=== PATIENT | male | born 1960 | race Caucasian/White ===

== ENCOUNTER 2016-10-24 04:09 | Inpatient (IN) | payer OTHER ==
[~2016-10-24] VITALS: Ht 165.1 cm; Wt 57.1 kg
--- NOTE | ~2016-10-24 | DS ---
PATIENT'S NAME: KJ [facility]FF [facility] AGE: 56 Y [address] ROOM: [place] [address] LOCATION: GPCU ADMIT DATE: 10/24/2016 Discharge Summary DISCHARGE DATE: 10/25/2016 FAMILY PHYSICIAN: Sandro Cerda MD ATTENDING PHYSICIAN: Ava Lal PRINCIPAL DISCHARGE DIAGNOSIS: Unstable angina. SECONDARY DIAGNOSES: 1. Hypotension. 2. Bradycardia. 3. Coronary artery disease. 4. Tobacco use. 5. Hypertension. 6. Hyperlipidemia. CONSULTATIONS: Dr. Shyanne Olivares on 10/24/2016, Cardiology. PROCEDURES: 1. Cardiac catheterization with PCI to the saphenous vein graft and saphenous vein graft to the OM and diagonal. 2. Echocardiogram on 10/24/2016 showed EF estimated at 60% to 65% with normal left ventricular contractility, diastolic dysfunction grade 1. BRIEF HISTORY: Mr. Kj Jeff is a 56-year-old gentleman who had history of premature coronary artery disease, having had coronary artery bypass grafting x2 vessels in the more distant past. He presented to the emergency room with chest pain on the left side of his chest, sharp with tachypnea and shortness of breath. EKG showed T-wave inversions in lead III, and troponin was within normal limits. He was admitted and started on aspirin, statin, and Dr. Olivares came to see the patient as he was already scheduled to have cardiac cath with her. The catheterization was done and you can see her records of the cath for the procedure. The patient tolerated the procedure well, has had no complications following the procedure, and he is to be started on Brilinta and his Plavix is stopped. The patient has been advised to stop smoking. He has had a NicoDerm patch on since yesterday and will be given a script for NicoDerm patch. INSTRUCTIONS AT DISCHARGE: Diet; [place] [employer] cardiac prudent. Activity, as tolerated and gradually increase his walking. PATIENT'S NAME: KJ JEFF [facility] AGE: 56 Y [address] ROOM: [place] [address] LOCATION: GPCU ADMIT DATE: 10/24/2016 Discharge Summary DISCHARGE DATE: 10/25/2016 FAMILY PHYSICIAN: Sandro Cerda MD ATTENDING PHYSICIAN: Ava Lal A Followup appointment with Dr. Olivares in 2 weeks with a basic metabolic panel prior to the appointment. He is to see his PCP, Dr. Sandro Cerda, within 1 week. He is to get a referral to cardiac rehab. MEDICATION AT THE TIME OF DISCHARGE: 1. Nitroglycerin 0.4 mg sublingual p.r.n. chest pain. 2. Aspirin 81 mg p.o. daily. 3. Atorvastatin 80 mg daily. 4. Pepcid 20 mg p.o. daily. 5. Lisinopril 2.5 mg p.o. daily. 6. Metoprolol 12.5 mg p.o. daily to be held for heart rate less than 60 and for systolic blood pressure less than 100. 7. NicoDerm patch 21 mg transdermal every day. He is being given a script for #6, no refills. 8. Brilinta. The patient will be given a card for this. It is 90 mg twice a day. 9. Tylenol 1 g daily as needed. CONDITION AT DISCHARGE: Good. TIME SPENT: Less than 30 minutes were spent. ALFONSO SUE MD LM/juan miguel /[id number] d: 10/26/16 0304 t: 10/28/16 1846, DISCHARGE SUMMARY
--- NOTE | ~2016-10-24 | CATH ---
Cardiac Diagnostic + PCI Report Demographics Patient Name OLMAN Saenz Gender Male Date of 1960 Age 56 year(s) Patient Number [id number] Date of Study 10/24/2016 Visit Number [id number] Room Number G6338 [place] [id number] Ht 165.1 cm Wt 57 kg Referring Zaida Jo MD Primary Physician Physician Lukasz Perry MD Performing [facility] Secondary Physician Physician Shyanne SANTOS Diagnostic [facility] Assisting Physician Physician Shyanne SANTOS Interventional [facility] Physician Vocational Coordinator Physician Shyanne SANTOS Findings and Conclusions Diagnostic Findings and Conclusion Critical salamatof TVD, FARAH to LAD is patent. RCA is [employer] in mid portion, unchanged from last cath, RCA is unrevascularized, distal vessel fills via collaterals from the left system. 2/3 grafts w/ obstructive lesions, SVG to Om with eccentric, hazy, 80% stenosis in the proximal portion and SVG to Diag with 70% stenosis in the mid portion past proximal stent, diffuse - Both these lesions are new compared with prior cath in 2015. Diagnostic Recommendations PCI of SVG to OM, and SVG to DIAG in setting of unstable angina, requiring admission to the hospital. Interventional Findings and Conclusion s/p PCI of SVG to OM and SVG to DIAG with JOSE. Interventional Recommendations Patient will be observed overnight. Hydration and followup creatinine. Patient has been instructed to not lift anything more than 5 pounds for 1 week. Aggressive risk factor management. Aggressive medical therapy for coronary artery disease. Patient was transferred to PCU in stable condition. Dual Anti-platelet therapy. Smoking Cessation teaching and counseling done . Lipid lowering medication: statin will be given. Optimization of medical therapy as an outpatient. Cardiac diet . Referral to Cardiac Rehabilitation now and at discharge . Procedure Description The patient was brought to the diagnostic cardiac catheterization-EP laboratory in the fasting, non-sedated state. Informed consent was obtained in the written and verbal form after the risks and benefits were explained. The patient had no further questions and agreed to proceed. The planned puncture-incision site(s) were shaved and prepped with ChloraPrep and draped in the usual sterile manner. Conscious sedation, supplemental oxygen, and pain control medications were delivered by a registered nurse under physician guidance. Surface ECG rhythm, blood pressure measurement, and pulse oximetry were monitored throughout the procedure. Arterial access. The access site was infiltrated with lidocaine. The vessel was entered with the Seldinger technique. A sheath was advanced into the vessel and used for catheter placement. Selective left coronary angiography. A catheter was advanced into the left coronary vessel ostium under Fluoroscopic guidance. Contrast was injected by hand. Images were obtained in multiple projections. Selective right coronary angiography. A catheter was advanced into the right coronary vessel ostium under fluoroscopic guidance. Contrast was injected by hand. Images were obtained in multiple projections. Selective FARAH graft angiography. A catheter was advanced into the left internal mammary graft ostium under fluoroscopic guidance. Contrast was injected by hand. Images were obtained in multiple projections. Selective SVG angiography. A catheter was advanced into the graft proximal anastomosis under fluoroscopic guidance. Contrast was injected by hand. Images were obtained in multiple projections. Stent Placement: A guiding catheter was used to intubate the vessel. A 0.14 wire was used to cross the lesion. A Drug Eluting Stent was placed. Post placement angiograms were performed. Arterial artery hemostasis. Hemostasis was achieved. The patient was transferred to a regular nursing floor via cart accompanied by a nurse. The patient left the laboratory in stable condition. Diagnostic Cath Status: Urgent Interventional Cath Status: Urgent Procedure Procedure Type Diagnostic procedure:Angiography:, Coronary Angios w/Grafts PCI procedure:Drug Eluting Coronary Stent:, Graft Indications: Chest pain and History of CABG. The procedure was explained in detail to the patient. Risks, complications and alternative treatments were reviewed. Written consent was obtained. Medications Reviewed with Patient prior to Procedure. Angiographic Findings Dominance: Right Cardiac Arteries and Lesion Findings LMCA: Abnormal.10% Lesion on LMCA: Distal subsection.10% stenosis . LAD: Abnormal.mid 90% Diag 50% prox Lesion on Mid LAD: Mid subsection.90% stenosis . Lesion on 1st Diag: Proximal subsection.50% stenosis . LCx: Abnormal.prox 100% Lesion on Prox CX: Proximal subsection.100% stenosis . RCA: Abnormal.Prox 90 %, mid 100 %isrThere is a previous stent on Mid RCA showing occlusion. Lesion on Prox RCA: Proximal subsection.90% stenosis . Lesion on Mid RCA: Mid subsection.100% stenosis . Ramus: Normal (0% Stenosis).small wnl Graft Lesions Lesion on Aorta Left to 1st Ob Radha: Proximal body.80% stenosis . Devices used - Runthrough NS .014 x 180. Number of passes: 1. - Promus Premier 3.0 x 16 Stent. 1 inflation(s) to a max pressure of: 14 grady. Lesion on Aorta Left to 1st Diag: Middle body. Devices used - Runthrough NS .014 x 180. Number of passes: 1. - BMW Wire .014 x 190. Number of passes: 1. - Promus Premier 2.5 x 28 Stent. 1 inflation(s) to a max pressure of: 12 grady. Lesion on Aorta Left to 1st Diag: Proximal body.40% stenosis . Lesion on Aorta Left to 1st Diag: Middle body.70% stenosis 28 mm length reduced to 0%. Pre procedure PAVEL III flow was noted. Post Procedure PAVEL III flow was present. A poor run off was present.The lesion was diagnosed as a high risk lesion.Culprit lesion. Lesion on Aorta Left to 1st Ob Radha: Proximal body.80% stenosis 16 mm length reduced to 0%. Pre procedure PAVEL III flow was noted. Post Procedure PAVEL III flow was present. A poor run off was present.The lesion was diagnosed as a high risk lesion.The lesion was eccentric.Culprit lesion. Cardiac Grafts - There is a FARAH graft that originates at the FARAH and attaches to the Mid LAD. - There is a Vein graft that originates at the Aorta Left and attaches to the 1st Diag.There is a previous stent on Aorta Left to 1st Diag Middle Body. - There is a Vein graft that originates at the Aorta Left and attaches to the 1st Ob Radha.There is a previous stent on Aorta Left to 1st Ob Radha Proximal Body. Coronary Tree Procedure Data Procedure Date Date: 10/24/2016Start: 12:43 PMEnd: 01:36 PM Entry Locations - Retrograde Percutaneous access was performed through the Right Femoral artery (Primary location). A 6 Fr sheath was inserted. Hemostasis was successfully obtained using Angio-Seal STS PLUS ([facility]). Closure Comments: deployed by Dr Bauman. Procedure Medications Order and Administration + + + + + !Time !Medication !Dosage !Route ! + + + + + !10/24/2016 12:39 !Versed !1 mg !I.V. ! !PM ! ! ! ! + + + + + !10/24/2016 12:40 !Fentanyl !50 mcg !I.V. ! !PM ! ! ! ! + + + + + !10/24/2016 12:45 !Versed !1 mg !I.V. ! !PM ! ! ! ! + + + + + !10/24/2016 01:02 !Angiomax (Bivalirudin) !40 mg !I.V. bolus ! !PM !(ACC_5) ! ! ! + + + + + !10/24/2016 01:02 !Angiomax (Bivalirudin) !1.75 mg/kg/hr!I.V. bolus ! !PM !(ACC_5) ! ! ! + + + + + !10/24/2016 01:09 !Brilinta (Ticagrelor) !180 mg !P.O. ! !PM !(ACC_20) ! ! ! + + + + + Devices Used - A5 Fr. BS JL 4 Diag. Catheterwas used for:Left coronary angiography. - A5 Fr. BS JR 4 Diag. Catheterwas used for:Right coronary angiography. - A6 Fr. IM JJ Guide Catheterwas used for:SVG Intervention. - A6 Fr. IM JJ Guide Catheterwas used for:SVG Intervention. Contrast Material - Isovue [id number] ml Fluoroscopy Time: Diagnostic: 12:00 minutes. Total: 12:00 minutes. Fluoroscopy Dose: Diagnostic: 744 mGy. Total: 744 mGy. Estimated Blood Loss: [address] [facility] PCI Information PCI Indication:PCI for high risk Non-STEMI or unstable angina. Medical History Allergies - Other:(Bactrim). Risk Factors The patient risk factors include:prior PCI on 09/24/2014; prior CABG on 03/12/2008;peripheral arterial disease, treated hypercholesterolemia, treated hypertension, family history of premature CAD, last creatinine: 0.9 mg/dl, creatinine clearance: 72.13 ml/min, dyslipidemia and Current/Recent(w/in 1 year) tobacco use. Admission Data Admission Date: 10/24/2016 Admission Time: 05:38 AM Admit Source: Emergency department Insurance Payors: Private health insurance. Admission Medications + +------+------+ + + + + !Medication !Dosage!Times !Last !Last !Administered !Comments ! ! ! !Per !Delivery !Delivery ! ! ! ! ! !Day !Date !Time ! ! ! + +------+------+ + + + + !Aspirin ! ! ! ! !Yes ! ! !(any) ! ! ! ! ! ! ! + +------+------+ + + + + !Statin (any)! ! ! ! !Yes ! ! + +------+------+ + + + + !Clopidogrel ! ! ! ! !Yes ! ! + +------+------+ + + + + !JAVIER ! ! ! ! !Yes ! ! !Inhibitor ! ! ! ! ! ! ! !(any) ! ! ! ! ! ! ! + +------+------+ + + + + !Beta Claude! ! ! ! !Yes ! ! !(any) ! ! ! ! ! ! ! + +------+------+ + + + + Clinical Evaluation Leading to Procedure - The patient's CAD presentation was assessed as: Unstable angina. - The patient's anginal syndrome during the past two weeks was assessed as: Class IV according to the [place] Cardiovascular Society Classification System (CCS). Anti-anginal medications were prescribed during the past two weeks. The medication is: Beta Blockers. - The patient has been in a state of heart failure within the past two weeks. - The patient's heart failure status was assessed as NYHA Class II. Hemodynamics Condition: Rest O2 Consumption: Estimated: 177.50Heart Rate: 48 bpm Pressures (mmHg) +-----+ + !Site !Pressure ! +-----+ + !AO !108/57 (77) ! +-----+ + !AO !93/56 (72) ! +-----+ + Shunts Oxygen Values O2 Capacity 198.56 O2 Consumption 177.5 Signatures dtt: SHYANNE SABA dtd: 10/24/16 1243 Physician Self Edit
--- NOTE | ~2016-10-24 | HP ---
[facility] AGE: 56 Y [address] ROOM: [place] [address] LOCATION: GPCU ADMIT DATE: 10/24/2016 History & Physical DISCHARGE DATE: FAMILY PHYSICIAN: JENI ZAMBRANO MD ATTENDING PHYSICIAN: ASUNCION PIERCE DATE OF SERVICE: CHIEF COMPLAINT: Chest pain. HISTORY OF PRESENT ILLNESS: A 56-year-old gentleman with a past medical history of coronary artery disease with the bypass and PCS to SVG grafts to diagonal as well as OM, who presented to the emergency department this morning with the chest pain, which is located on the left side of the chest, sharp in character, and increased with breathing. No alleviating or aggravating factors. Not associated with any shortness of breath, but is associated with dizziness. It has been going on for many weeks now and have progressively gotten worse. He has a catheterization scheduled in this coming week. On further inquiry, he denied any heaviness and tightness, any shortness of breath, abdominal pain, constipation, diarrhea, burning on urination, or extremity swelling. He does have a history of left leg numbness secondary to lumbar surgery done in the past. REVIEW OF SYSTEMS: All other systems reviewed and were negative except for what is mentioned in the HPI. PAST MEDICAL HISTORY: 1. Coronary artery disease. 2. Lumbar stenosis status post surgery. MEDICATIONS: Medication being reconciled right now. FAMILY HISTORY: Significant for coronary artery disease in father. SOCIAL HISTORY: Lifelong smoker. Currently smokes 1/2 pack per day. ALLERGIES: NO KNOWN DRUG ALLERGIES. PAT[facility]'S NAME: [facility] AGE: 56 Y [address] ROOM: [address] [place] [id number] LOCATION: GPCU ADMIT DATE: 10/24/2016 History & Physical DISCHARGE DATE: FAMILY PHYSICIAN: JENI ZAMBRANO MD ATTENDING PHYSICIAN: ASUNCION PIERCE PHYSICAL EXAMINATION: VITAL SIGNS: Blood pressure 90/50, heart rate 50, saturation 95%, and respiratory rate 16. GENERAL: In no acute distress. Alert and oriented x3. HEENT: Head; atraumatic and normocephalic. Eyes; nonicteric, no pallor. Oropharynx, moist mucous membranes. CARDIOVASCULAR: S1 and S2. No murmurs, gallops, or rubs. LUNGS: Clear to auscultation bilaterally. ABDOMEN: Soft, nontender, and nondistended. Bowel sounds present. EXTREMITIES: No clubbing, cyanosis, or edema. PSYCHIATRIC: Normal affect, mood, and speech. NEUROLOGIC: Cranial nerves 2 through 12 are intact. No motor or sensory deficits. SKIN: No blemishes or dryness noted. ENDOCRINE: No thyromegaly or myxedema noted. LYMPHATICS: No lymphangiitis or lymphadenopathy noted. LABORATORY DATA: All the laboratory work done in the emergency department including CBC, BMP, and initial troponin levels were negative. EKG showed T-wave inversions in the lead III. Chest x-ray has been unremarkable. D-dimer level is pending at this point. ASSESSMENT AND PLAN: 1. Chest pain. 2. History of coronary artery disease. Plan: We are going to admit this patient. Start him on aspirin and statin. I am not going to start him on heparin drip given the very atypical nature of the chest pain. We will have Cardiology, Dr. Kimble come see this patient as he is Dr. Kimble's patient. May be expedite catheterization rather than next week. N.p.o. for now. The patient is a full code. Further recommendations will depend on his progress in the hospital. MD TIFFANI BUCKNER/juan miguel /[id number] D: [id number] T: [id number] HISTORY & PHYSICAL
--- NOTE | ~2016-10-24 | ECHO ---
Transthoracic Echocardiography Report (TTE) Demographics Patient Name MARIVEL THURMAN Date of Study 10/24/2016 Patient Number [id number] Visit Number [id number] Date of 1960 Room Number G6338 Accession Number [id number] Gender Male Age 56 year(s) Referring Zaida Jo MD Metal Numerical Tool Programmer Agnieszka Whitney [facility], Physician RVT Physician Interpreting Marshall Kimble Dry Color Tester Physician Supervising Ordering Physician Lukasz Perry MD/MLP Nurse Stress Vocational Instructor Conclusions Contractility Score Summary Normal Left Ventricular contractility was noted. Summary Normal LV/RV size and systolic function. The estimated left ventricular ejection fraction is 60-65%. Diastolic assessment reveals Grade I diastolic dysfunction. No significant valvular abnormalities. Procedure Type of Study TTE procedure:2D Echocardiogram. Procedure Date Date: 10/24/2016 Start: 07:14 AM Study Location: Inpatient Portable Technical Quality: Adequate visualization Indications:Chest pain. Appropriate Use Criteria: 9 Patient Status: Routine Rhythm: Sinus bradycardia HR: 45 bpm BP: 165/57 mmHg Allergies - Other:(Bactrim). M-Mode/2D Measurements LV Diastolic Dimension: 4.54 cm LV Systolic Dimension: 4.04 cm LV Septum Diastolic: 0.93 cm LV Septum Systolic: 4.83 cm LV PW Diastolic: 0.87 cm AO Root Dimension: 2.1 cm Cardiac Output: 3.12 l/min AV Cusp Separation: 1.5 cm RV Diastolic Dimension: 2.57 cm LA volume: 67 ml IVC Inspiration: 0.72 cm LVOT: 2.1 cm RV Base: 3.49 cm LVOT VTI: 20 cm RV Mid: 1.76 cm LV Stroke volume: 69.24 ml TAPSE: 1.91 cm TDI-S': 9.43 cm/s Doppler Measurements AV Peak Velocity: 1.17 m/s MV Peak E-Wave: 0.89 m/s AV Peak Gradient: 5.48 mmHg MV Peak A-Wave: 0.34 m/s AV Mean Gradient: 2 mmHg MV E/A Ratio: 2.66 LVOT Peak Velocity: 0.89 m/s MV P1/2t: 76 msec TR Gradient:25 mmHg PV Peak Velocity: 0.88 m/s Estimated RAP:3 mmHg PV Peak Gradient: 3.13 mmHg Estimated RVSP: 28 mmHg Estimated PASP: 28 mmHg Findings Left Ventricle The estimated left ventricular ejection fraction is 60-65%. Diastolic assessment reveals Grade I diastolic dysfunction. Right Ventricle Normal right ventricle structure and function. Left Atrium Normal left atrial size. Right Atrium Normal right atrial size. Mitral Valve Trivial mitral regurgitation by color Doppler. Aortic Valve The aortic valve is mildly sclerotic. No AI. Tricuspid Valve Mild tricuspid regurgitation by color Doppler. Pulmonic Valve Normal pulmonic valve structure and function. Pericardial Effusion No evidence of pericardial effusion. Miscellaneous Visualized portions of the aortic root and ascending aorta appear normal in size. Pleural Effusion No evidence of pleural effusion. Contractility Score LV regional wall motion:(0-Non visualized 1-Normal 2-Hypokinesis 3-Akinesis 4-Dyskinesis 5-Aneurysm) Signature dtt: DANIEL SABA dtd: 10/24/16 0714 Physician Self Edit
--- NOTE | ~2016-10-24 | ER ---
[facility] AGE: 56 Y [address] ROOM: [place] [address] LOCATION: GPCU ADMIT DATE: 10/24/2016 ER/Outpatient Report DISCHARGE DATE: FAMILY PHYSICIAN: JENI ZAMBRANO MD ATTENDING PHYSICIAN: ASUNCION PIERCE Time of Arrival: 0409 hours. Time of Evaluation: 0415 hours. CHIEF COMPLAINT: This is a 56-year-old male. He was previously healthy. He is in with complaint of left-sided chest pain. HISTORY OF PRESENT ILLNESS: The patient reports that he was awakened at about 3:00 this morning with fairly severe left-sided chest pain, took a nitroglycerin without any relief, so he presented himself here. The pain has improved while en route to the hospital. PAST MEDICAL HISTORY: Significant for well documented coronary artery disease. He has had previous bypass. REVIEW OF SYSTEMS: He has been having increased frequency of episodes of chest pain over the past month to 6 weeks. He has a stress test scheduled for later this week. Review of systems is otherwise negative. SOCIAL HISTORY: He is a 1 pack per day smoker. PHYSICAL EXAMINATION: GENERAL: An alert cooperative male, in no acute distress. VITAL SIGNS: Stable. SKIN: Warm and dry. Color was normal. HEAD, EARS, EYES, NOSE, AND THROAT: Normal. NECK: Supple. HEART: Regular rate and rhythm without murmur. LUNGS: Clear. Breath sounds were equal. CHEST: He had no chest wall tenderness. ABDOMEN: Soft and nontender. EXTREMITIES: Normal. NEUROLOGIC: Normal. LABORATORY DATA AND X-RAYS: [facility] AGE: 56 Y [address] ROOM: [place] [id number] LOCATION: GPCU ADMIT DATE: 10/24/2016 ER/Outpatient Report DISCHARGE DATE: FAMILY PHYSICIAN: JENI ZAMBRANO MD ATTENDING PHYSICIAN: ASUNCION PIERCE A EKG revealed a nonspecific intraventricular conduction delay with no acute ST or T-wave changes. CBC, comprehensive metabolic profile, and cardiac enzymes were negative. EMERGENCY DEPARTMENT COURSE: The patient's pain gradually improved while in the emergency department. ASSESSMENT: Chest pain/unstable angina. PLAN: Admit for serial enzymes. The hospitalist was called, arrived promptly, evaluated the patient, and made arrangements to admit him. MD MARTIN SUN/joannel /[id number] d: 10/25/16 0738 t: 10/27/16 0551, OUTPATIENT REPORT
[~2016-10-24 04:09] MED LIST: ASPIR 8181 MG PO; ASPIRIN EC81 MG PO; AUGMENTIN 875-1 EACH PO; BRILINTA90 MG PO; FLEXERIL10 MG PO; LIPITOR80 MG PO; NICODERM (HABIT14 MG TOP; NITROGLYCERIN0.4 MG SL; NITROSTAT0.4 MG SL; OXYCONTIN EXTEN10 MG PO; PEPCID20 MG PO; PLAVIX75 MG; PLAVIX75 MG PO; TOPROL XL25 MG PO; TYLENOL325 MG PO; ZESTRIL2.5 MG PO; ZOCOR10 M1 PO; ZOCOR40 MG PO; ZOLOFT25 MG PO
[2016-10-24 04:37] LABS: BASOPHIL # 0.1 K/uL (0.0-0.2); BASOPHIL % 0.7 %; EOSINOPHIL # 0.2 K/uL (0.0-0.5); EOSINOPHIL % 2.5 %; HEMATOCRIT 42.8 % (37.0-53.0); HEMOGLOBIN 14.6 g/dL (12.0-17.0); IMMATURE GRANULOCYTE % 0.3 %; LYMPHOCYTE # 2.5 K/uL (0.8-4.0); LYMPHOCYTE % 26.8 %; MCH 30.5 pg (27.0-34.0); MCHC 34.1 gm/dL (32.0-36.5); MCV 89.4 fl (83.0-98.0); MONOCYTE # 0.6 K/uL (0.0-1.0); MONOCYTE % 6.7 %; MPV 10.2 fl (9.4-12.4); NEUTROPHIL # (ANC) 5.9 K/uL (1.4-9.0); NRBC % 0 /100WBC (0-0.00); PLATELET COUNT 209 K/uL (150-450); RBC 4.79 M/uL (4.00-6.00); RDW-CV 13.3 % (11.9-14.6); WBC 9.3 K/uL (4.0-11.0)
[2016-10-24 04:45] LABS: INR - (THERAPEUTIC) 0.95 (0.92-1.07); PTT 27 SECONDS (25-32)
[2016-10-24 04:48] LABS: ALBUMIN 3.2 gm/dL (3.5-5.0); ALK PHOS 116 IU/L (33-138); ALT 24 IU/L (12-78); ANION GAP 9.9 (10.0-19.0); AST 27 IU/L (10-40); BLOOD UREA NITROGEN 11 mg/dL (6-24); CALCIUM 8.2 mg/dL (8.5-10.5); CHLORIDE 109 mMol/L (96-110); CO2 26 mMol/L (22-32); CPK 95 IU/L (35-332); CREATININE 0.9 mg/dL (0.6-1.3); MAGNESIUM 2.1 mg/dL (1.8-2.6); POTASSIUM 3.9 mMol/L (3.7-5.1); SODIUM 141 mMol/L (135-145); TOTAL BILIRUBIN 0.5 mg/dL (0.0-1.5); TOTAL PROTEIN 6.8 g/dL (6.0-8.4)
[2016-10-24] MEDS ORDERED: TYLENOL EXTRA500 MG PO (10:01)
[2016-10-24] MEDS ORDERED: PEPCID20 MG PO (10:01)
[2016-10-24] MEDS ORDERED: NITROSTAT0.4 MG SL (10:02)
--- NOTE | 2016-10-24 10:24 | NUR ---
PT is 56 y/o male admit for chest pain for hospitalist. Cardiology to consult. Pt alert and oriented x3. Resides at home with . Allergy to Bactrim. REd and yellow bracelets on. Hx CABG,stents,PR x2,hypercholester,htn,weakness, dizziness,CAD,N/T L)leg and foot r/t back problems,lower GI bleed,gerd, leaking/dribbling,urgency,slow stream,BPH,depression,anxiety. Pt states he's had CP off and on for a couple months but it was more severe this am. Came to ED early this am. Heart cath later today around noon.
[2016-10-24 12:28] LABS: CPK 72 IU/L (35-332)
--- NOTE | 2016-10-24 12:30 | NUR ---
Introduced self and role of care management to patient. He lives with in [place]. He plans home when ready for discharge. He expresses concerns for paying his copay and asks for a financial assistance form. Gave patient the form. Does not anticipate discharge needs at this time. Will follow.
[2016-10-24 15:02] LABS: CPK 63 IU/L (35-332)
--- NOTE | 2016-10-24 16:45 | NUR ---
Significant Event: A/O x3, cooperative with cares. VSS, SBPs 90s, HRs 40s, on room air; doctor is aware of heart rate et SBPs. No c/o pain. Hearth cath today; R) groin, angioseal; site is soft, non-tender; dressing gauze et tegaderm, C/D/I; stent x2 to SD. Up with SBA; ambulate bowen. Urinated since heart cath Follow up: possible d/c tomorrow
[2016-10-24 18:12] LABS: CPK 77 IU/L (35-332)
[2016-10-24 20:43] LABS: CPK 79 IU/L (35-332)
[2016-10-25 00:08] LABS: CPK 84 IU/L (35-332)
[2016-10-25 02:41] LABS: BASOPHIL # 0.1 K/uL (0.0-0.2); BASOPHIL % 0.8 %; EOSINOPHIL # 0.2 K/uL (0.0-0.5); HEMATOCRIT 43.8 % (37.0-53.0); HEMOGLOBIN 14.7 g/dL (12.0-17.0); IMMATURE GRANULOCYTE % 0.4 %; LYMPHOCYTE # 2.2 K/uL (0.8-4.0); LYMPHOCYTE % 28.1 %; MCH 29.9 pg (27.0-34.0); MCHC 33.6 gm/dL (32.0-36.5); MONOCYTE # 0.6 K/uL (0.0-1.0); MONOCYTE % 7.9 %; MPV 10.2 fl (9.4-12.4); NEUTROPHIL # (ANC) 4.6 K/uL (1.4-9.0); NEUTROPHIL % 59.8 %; NRBC % 0 /100WBC (0-0.00); PLATELET COUNT 199 K/uL (150-450); RBC 4.92 M/uL (4.00-6.00); RDW-CV 13.6 % (11.9-14.6); WBC 7.7 K/uL (4.0-11.0)
[2016-10-25 02:56] LABS: ALBUMIN 2.9 gm/dL (3.5-5.0); ALK PHOS 106 IU/L (33-138); ALT 21 IU/L (12-78); ANION GAP 9.1 (10.0-19.0); AST 24 IU/L (10-40); BLOOD UREA NITROGEN 14 mg/dL (6-24); CALCIUM 8.1 mg/dL (8.5-10.5); CHLORIDE 113 mMol/L (96-110); CO2 25 mMol/L (22-32); CREATININE 0.9 mg/dL (0.6-1.3); POTASSIUM 4.1 mMol/L (3.7-5.1); SODIUM 143 mMol/L (135-145); TOTAL BILIRUBIN 0.5 mg/dL (0.0-1.5); TOTAL PROTEIN 6.2 g/dL (6.0-8.4)
[2016-10-25 03:16] LABS: CPK 82 IU/L (35-332)
--- NOTE | 2016-10-25 04:36 | NUR ---
Significant event: Patient is A&O x3. Up to bathroom with SBA. IVF DC'd. SBP 90-100's. No complains of pain. Groin site is soft and non-tender. Tegaderm and gauze dressing clean, dry, and intact. 300 UOP. Follow up: Patient should go home today
[2016-10-25 09:18] LABS: CPK 99 IU/L (35-332)
[2016-10-25] MEDS ORDERED: TOPROL XL25 MG PO (12:14)
[2016-10-25] MEDS ORDERED: NICODERM / HABIT7 MG TOP (12:15)
[2016-10-25] MEDS ORDERED: BRILINTA90 MG PO (12:16)
--- NOTE | 2016-10-25 13:15 | NUR ---
Significant Event: A/O x3, cooperative with cares. VSS, SBPs 120-160s, HRs 60-70s, on room air. No c/o pain. Heart cath site to R) radial, soft et non-tender; dressing removed et band-aid applied prior to dismissal. Up in room ad yessenia; ambulate in bowen with cardiac rehab et ad yessenia. Dismissal instructions given to patient et ; verbalized understanding. Dismissed to front lobby per w/c accompanied by professor of nursing. Follow up:
== END 2016-10-25 13:15 | disposition disaster alternative care site (69) | DRG 247 ==
LOC: GMED 04:09 → GPCU 05:38
PROVIDERS: Emergency Medicine; Internal Medicine Interventional Cardiology; ADMIT Internal Medicine
PROC: 027034Z Dilation of Coronary Artery, One Artery with Drug-eluting Intraluminal Device, Percutaneous Approach (ICD-10-PCS; principal; 2016-10-24)
PROC: B211YZZ Fluoroscopy of Multiple Coronary Arteries using Other Contrast (ICD-10-PCS; 2016-10-24)
PROC: B218YZZ Fluoroscopy of Left Internal Mammary Bypass Graft using Other Contrast (ICD-10-PCS; 2016-10-24)
DX: I25.110 Atherosclerotic heart disease of native coronary artery with unstable angina pectoris (principal); I95.9 Hypotension, unspecified; I10 Essential (primary) hypertension; E78.5 Hyperlipidemia, unspecified; F17.210 Nicotine dependence, cigarettes, uncomplicated; Z95.1 Presence of aortocoronary bypass graft; Z79.82 Long term (current) use of aspirin
CPT/HCPCS: C1760; C1769; C1874; C1887; C9604; C9605; J0583; J1644; J2250; J2370; J3010; J7030; J7060; J7120

== ENCOUNTER → 2016-11-10 | Outpatient (CLI) | payer OTHER ==
[~2016-11-10] MED LIST changes: +NICODERM / HABIT7 MG TOP; +TYLENOL EXTRA500 MG PO
[2016-11-10 12:07] LABS: ANION GAP 10.2 (10.0-19.0); BLOOD UREA NITROGEN 10 mg/dL (6-24); CALCIUM 8.4 mg/dL (8.5-10.5); CHLORIDE 109 mMol/L (96-110); CO2 29 mMol/L (22-32); CREATININE 0.8 mg/dL (0.6-1.3); POTASSIUM 4.2 mMol/L (3.7-5.1); SODIUM 144 mMol/L (135-145)
== END ==
LOC: LNHI 11:25
PROVIDERS: Internal Medicine Interventional Cardiology
DX: I25.5 Ischemic cardiomyopathy (principal); I10 Essential (primary) hypertension; E78.2 Mixed hyperlipidemia